=== PATIENT | male | born 1980 | race Caucasian/White ===

== ENCOUNTER 2023-09-05 01:14 | Emergency (ER) | payer OTHER ==
[2023-09-05 01:24] VITALS: BP 120/83; PULSE 68; RESP 16; TEMP 97.6; BMI 27.8
== END 2023-09-05 01:54 | disposition home or self-care (01) ==
LOC: FER 01:14
DX: H61.22 Impacted cerumen, left ear (principal)
CPT/HCPCS: 99283-25